=== PATIENT | male | born 1990 | race African-American/Black ===

== ENCOUNTER 2017-04-08 02:01 | Emergency (ER) | payer MEDICAID ==
[~2017-04-08] VITALS: Ht 175.3 cm; Wt 72.6 kg
[2017-04-08 02:05] VITALS: BP 136/76
[2017-04-08] MEDS ORDERED: LIDOCAINE 1% HCL (LOCAL ANESTH.) INJ 20ML MDV ONE (04:58)
== END 2017-04-08 05:35 | disposition home or self-care (01) ==
LOC: EDBD 02:01 → ER 02:07
DX: S01.81XA Laceration without foreign body of other part of head, initial encounter (principal); Z02.89 Encounter for other administrative examinations; X58.XXXA Exposure to other specified factors, initial encounter; Y93.02 Activity, running; Y99.8 Other external cause status; Y92.89 Other specified places as the place of occurrence of the external cause
CPT/HCPCS: 70450; 70486; 72125; 99284; J2001